=== PATIENT | female | born 1965 | race Hispanic/Latino ===

== ENCOUNTER 2018-10-22 01:07 | Emergency (ER) | payer BC ==
[2018-10-22 01:40] VITALS: BP 143/74
[2018-10-22] MEDS ORDERED: DECADRON IM ONE (02:14)
[2018-10-22] MEDS ORDERED: CLEOCIN PO ONE (02:19)
--- NOTE | 2018-10-22 02:46 | XRay Report ---
FINAL REPORT EXAM: XR CHEST ROUTINE 2V HISTORY: cough productive COMPARISON: None available. FINDINGS:: Frontal and lateral views of the chest obtained. Cardiac silhouette is within normal limi ts. Shallow inspiration. Mild peribronchial cuffing and minimal prominence of the interstitium concer josefina for bronchitis. No dense consolidation or effusion.. No pneumothorax. Visualized bony thorax is grossly intact. IMPRESSION:: Findings compatible with bronchitis. Mild pneumonitis not excluded. No dense consolidat ion or effusion.
[2018-10-22] MEDS ORDERED: PROVENTIL IH ONE (02:54)
--- NOTE | 2018-10-22 03:00 | Emergency Department Report ---
Upper Respiratory HPI - HPI Chief Complaint: Upper Respiratory Infection Stated Complaint: SORE THROAT/LIN Time Seen by Provider: 10/22/18 02:13 Duration: 4 Days URI Symptoms: Rhinorrhea: Yes, Sore Throat: Yes ( ), Ear Pain: Yes (right ), Cough: Yes, Shortness of Breath: Yes, Sick Contacts: Yes, Unable to Take Fluids: No, Urine Output Abnormal: No, Listless Behavior: No Other History: Patient presents for URI symptoms chest wall pain left ear pain noc fever wheezing and shortness of breath pt with nad as this time - Home Meds and Allergies Home Medications: Previous Rx's Medication Instructions Recorded Last Taken Type Ibuprofen 800 mg PO TID PRN #30 tablet 10/22/18 Unknown Rx Allergies/Adverse Reactions: Allergies Allergy/AdvReac Type Severity Reaction Status Date / Time cefaclor [From Ceclor] Allergy Unknown Verified 10/22/18 01:41 morphine Allergy Vomiting Verified 10/22/18 01:41 ED Review of Systems ROS: Stated complaint: SORE THROAT/LIN Other details as noted in HPI Constitutional: denies: chills, fever Eyes: denies: eye pain, eye discharge, vision change ENT: ear pain, throat pain, congestion. denies: dental pain, hearing loss, epistaxis Respiratory: cough, wheezing Cardiovascular: denies: chest pain, palpitations, dyspnea on exertion Endocrine: no symptoms reported Gastrointestinal: denies: abdominal pain, nausea, vomiting, diarrhea Genitourinary: denies: urgency, dysuria, frequency, hematuria, discharge, abnormal menses, dyspareunia Musculoskeletal: denies: back pain, joint swelling, arthralgia Skin: denies: rash, lesions Neurological: denies: headache, weakness, paresthesias, abnormal gait, vertigo Psychiatric: denies: anxiety, depression Hematological/Lymphatic: denies: easy bleeding, easy bruising ED Past Medical Hx - Past Medical History Hx Hypertension: Yes Additional medical history: high cholestrol. polycystic kidney disease - Surgical History Past Surgical History?: Yes Additional Surgical History: x1. endometrosis removed. - Social History Smoking Status: Never Smoker Substance Use Type: Alcohol - Medications Home Medications: Home Medications Medication Instructions Recorded Confirmed Last Taken Type Ibuprofen 800 mg PO TID PRN #30 tablet 10/22/18 Unknown Rx ED Bronchiolitis Physical Exam - Exam General: Vital signs noted. No distress. Alert and acting appropriately. HEENT: Yes Pharyngeal Erythema, Yes Dry Mucous Membranes, Yes Rhinorrhea, No Conjuctival Injection Ear: Left TM Erythema, Neither TM Bulge, Neither EAC Discharge Neck: No Adenopathy, No Rigidity Lungs: Yes Clear Lung Sounds, Yes Good Air Exchange, Yes Cough, No Wheezes, No Stridor, No Nasal Flaring, No Retractions, No Use of Accessory Muscles Heart: Yes Regular, No Murmur Abdomen: Yes Normal Bowel Sounds, No Tenderness, No Peritoneal Signs Skin: No Rash, No Eczema Neurologic: Alert and oriented, no deficits. Musculoskeletal: Unremarkable. ED Bronchiolitis Tests - Testing Testing: CXR: Normal/Negative (no infiltrates no opacities ) ED Physical Exam - General Limitations: No Limitations General appearance: alert, in no apparent distress - Head Head exam: Present: atraumatic, normocephalic, normal inspection - Eye Eye exam: Present: normal appearance, PERRL, EOMI Pupils: Present: normal accommodation - ENT ENT exam: Present: normal orophraynx, mucous membranes moist, TM's normal bilaterally, normal external ear exam - Neck Neck exam: Present: normal inspection, full ROM. Absent: tenderness, meningismus, lymphadenopathy, thyromegaly - Respiratory Respiratory exam: Present: normal lung sounds bilaterally. Absent: respiratory distress, wheezes, rhonchi, chest wall tenderness, accessory muscle use, decreased breath sounds, prolonged expiratory - Cardiovascular Cardiovascular Exam: Present: regular rate, normal rhythm, normal heart sounds. Absent: systolic murmur, diastolic murmur, rubs, gallop - GI/Abdominal GI/Abdominal exam: Present: soft, normal bowel sounds. Absent: distended, tenderness, rebound, mass, pulsatile mass, hernia - Rectal Rectal exam: Present: deferred - Extremities Exam Extremities exam: Present: normal inspection, full ROM, normal capillary refill. Absent: tenderness, pedal edema, joint swelling - Back Exam Back exam: Present: normal inspection, full ROM, muscle spasm. Absent: tenderness, CVA tenderness (R), CVA tenderness (L), paraspinal tenderness, vertebral tenderness, rash noted - Neurological Exam Neurological exam: Present: alert, oriented X3, CN II-XII intact, normal gait, motor sensory deficit - Psychiatric Psychiatric exam: Present: normal affect, normal mood - Skin Skin exam: Present: warm (O), dry, intact, normal color. Absent: rash ED Course Vital Signs 10/22/18 01:36 Temperature 98.2 F Pulse Rate 90 Respiratory 18 Rate Blood Pressure 143/74 O2 Sat by Pulse 97 Oximetry ED Medical Decision Making - Radiology Data Radiology results: report reviewed, image reviewed [address] [place] [address] XRay Report Signed Patient: UBALDO HULL MR#: [id number] : 1965 Acct:[id number] Age/Sex: 53 / F ADM Date: 10/22/18 Loc: ED Attending Dr: Ordering Physician: CARLYN CHARLTON NP Date of Service: 10/22/18 Procedure(s): XR chest routine 2V Accession Number(s): [id number] cc: CARLYN CHARLTON NP Fluoro Time In Minutes: FINAL REPORT EXAM: XR CHEST ROUTINE 2V HISTORY: cough productive COMPARISON: None available. FINDINGS:: Frontal and lateral views of the chest obtained. Cardiac silhouette is within normal limits. Shallow inspiration. Mild peribronchial cuffing and minimal prominence of the interstitium concerning for bronchitis. No dense consolidation or effusion.. No pneumothorax. Visualized bony thorax is grossly intact. IMPRESSION:: Findings compatible with bronchitis. Mild pneumonitis not excluded. No dense consolidation or effusion. Transcribed By: LMA Dictated By: GEORGE JEAN MD Electronically Authenticated By: GEORGE JEAN MD Signed Date/Time: 10/22/18 0246 - Medical Decision Making this is s URI cxr: normal cxr no infiltrate no opacities, symptoms improved plan: refill albuteral nebiziers, ibuprofin clindamycin , dc to home in stable to condition follow up with pcp in 2-3 days , pt verbalized agreement and understanding. of small. Critical care attestation.: If time is entered above; I have spent that time in minutes in the direct care of this critically ill patient, excluding procedure time. ED Disposition Clinical Impression: Bronchitis Disposition: DC-01 TO HOME OR SELFCARE Is pt being admited?: No Does the pt Need Aspirin: No Condition: Good Instructions: Chronic Bronchitis (ED), Acute Bronchitis (ED), Otitis Media (ED) Prescriptions: Ibuprofen 800 mg PO TID PRN #30 tablet PRN Reason: chest wall pain Referrals: PRIMARY CARE,MD [Primary Care Provider] - 3-5 Days Forms: Work/School Release Form(ED) Time of Disposition: 03:16
--- NOTE | 2018-10-22 03:22 | Emergency Department Report ---
ED General Adult HPI - General Chief complaint: Upper Respiratory Infection Stated complaint: SORE THROAT/LIN Time Seen by Provider: 10/22/18 02:13 Source: patient Mode of arrival: Ambulatory Limitations: No Limitations - History of Present Illness Initial comments: There is a 53-year-old white female who presents for URI symptoms including earache and body aches partner has no particular symptoms are resolved , pt cought in cough chest wall pain tmox 100. thee sinus papin have been rescon smitha JORGENSEN Complaint: Tolu Valderrama Felicitas Onset/Timin () -: Gradual - Related Data Previous Rx's Medication Instructions Recorded Last Taken Type ALBUTEROL Inhaler(NF) [VENTOLIN 1 puff IH Q4H #25 inha 10/22/18 Unknown Rx Inhaler(NF)] ALBUTEROL NEB's [Proventil 0.083% 2.5 mg IH ONCE #20 nebu 10/22/18 Unknown Rx NEBS] Ibuprofen 800 mg PO TID PRN #30 tablet 10/22/18 Unknown Rx Ibuprofen [Motrin 800 MG tab] 800 mg PO Q8HR PRN #30 tablet 10/22/18 Unknown Rx predniSONE [Deltasone] 20 mg PO QDAY 5 Days #10 tab 10/22/18 Unknown Rx Allergies Allergy/AdvReac Type Severity Reaction Status Date / Time cefaclor [From Ceclor] Allergy Unknown Verified 10/22/18 01:41 morphine Allergy Vomiting Verified 10/22/18 01:41 ED Review of Systems ROS: Stated complaint: SORE THROAT/LIN Other details as noted in HPI Constitutional: denies: chills, fever Eyes: denies: eye pain, eye discharge, vision change ENT: ear pain, throat pain, congestion. denies: dental pain, hearing loss, epistaxis Respiratory: cough, wheezing Cardiovascular: denies: chest pain, palpitations, dyspnea on exertion Endocrine: no symptoms reported Gastrointestinal: denies: abdominal pain, nausea, vomiting, diarrhea Genitourinary: denies: urgency, dysuria, frequency, hematuria, discharge, abnormal menses, dyspareunia Musculoskeletal: denies: back pain, joint swelling, arthralgia Skin: denies: rash, lesions Neurological: denies: headache, weakness, paresthesias, abnormal gait, vertigo Psychiatric: denies: anxiety, depression Hematological/Lymphatic: denies: easy bleeding, easy bruising ED Past Medical Hx - Past Medical History Hx Hypertension: Yes Additional medical history: high cholestrol. polycystic kidney disease - Surgical History Past Surgical History?: Yes Additional Surgical History: x1. endometrosis removed. - Social History Smoking Status: Never Smoker Substance Use Type: Alcohol - Medications Home Medications: Home Medications Medication Instructions Recorded Confirmed Last Taken Type ALBUTEROL Inhaler(NF) [VENTOLIN 1 puff IH Q4H #25 inha 10/22/18 Unknown Rx Inhaler(NF)] ALBUTEROL NEB's [Proventil 0.083% 2.5 mg IH ONCE #20 nebu 10/22/18 Unknown Rx NEBS] Ibuprofen 800 mg PO TID PRN #30 tablet 10/22/18 Unknown Rx Ibuprofen [Motrin 800 MG tab] 800 mg PO Q8HR PRN #30 tablet 10/22/18 Unknown Rx predniSONE [Deltasone] 20 mg PO QDAY 5 Days #10 tab 10/22/18 Unknown Rx ED Physical Exam - General Limitations: No Limitations General appearance: alert, in no apparent distress - Head Head exam: Present: atraumatic, normocephalic, normal inspection - Eye Eye exam: Present: normal appearance, PERRL, EOMI Pupils: Present: normal accommodation - ENT ENT exam: Present: normal exam, mucous membranes moist - Neck Neck exam: Present: normal inspection, tenderness, full ROM, lymphadenopathy, thyromegaly, other. Absent: meningismus - Respiratory Respiratory exam: Present: normal lung sounds bilaterally. Absent: respiratory distress ED Course Vital Signs 10/22/18 01:36 Temperature 98.2 F Pulse Rate 90 Respiratory 18 Rate Blood Pressure 143/74 O2 Sat by Pulse 97 Oximetry ED Medical Decision Making - EKG Data EKG shows normal: sinus rhythm Rate: normal - EKG Data When compared to previous EKG there are: no significant change Interpretation: no acute changes, normal EKG, unchanged when compared t - Radiology Data Radiology results: pending, image reviewed FINAL REPORT EXAM: XR CHEST ROUTINE 2V HISTORY: cough productive COMPARISON: None available. FINDINGS:: Frontal and lateral views of the chest obtained. Cardiac silhouette is within normal limits. Shallow inspiration. Mild peribronchial cuffing and minimal prominence of the interstitium concerning for bronchitis. No dense consolidation or effusion.. No pneumothorax. Visualized bony thorax is grossly intact. IMPRESSION:: Findings compatible with bronchitis. Mild pneumonitis not excluded. No dense consolidation or effusion. Transcribed By: LMA Dictated By: GEORGE JEAN MD Electronically Authenticated By: GEORGE JEAN MD Signed Date/Time: 10/22/18 0246 - Medical Decision Making ymptoms improved pt is tolerating po intake without n/v plan: follow with pcp in 2-3 days for recheck , take all medications , pt verbalizes agreement and understanding of same for discharge to home in stable condtion as they pack Critical care attestation.: If time is entered above; I have spent that time in minutes in the direct care of this critically ill patient, excluding procedure time. ED Disposition Clinical Impression: Bronchitis Disposition: - TO HOME OR SELFCARE Is pt being admited?: No Does the pt Need Aspirin: No Condition: Good Instructions: Otitis Media (ED), Acute Bronchitis (ED), Chronic Bronchitis (ED) Prescriptions: ALBUTEROL Inhaler(NF) [VENTOLIN Inhaler(NF)] 1 puff IH Q4H #25 inha ALBUTEROL NEB's [Proventil 0.083% NEBS] 2.5 mg IH ONCE #20 nebu Ibuprofen [Motrin 800 MG tab] 800 mg PO Q8HR PRN #30 tablet PRN Reason: Fever >101 Ibuprofen 800 mg PO TID PRN #30 tablet PRN Reason: chest wall pain predniSONE [Deltasone] 20 mg PO QDAY 5 Days #10 tab Referrals: PRIMARY CARE, [Primary Care Provider] - 3-5 Days Forms: Work/School Release Form(ED) Time of Disposition: 03:38
== END 2018-10-22 03:46 | disposition home or self-care (01) ==
LOC: ED 01:07
DX: J40 Bronchitis, not specified as acute or chronic (principal); I10 Essential (primary) hypertension; E78.00 Pure hypercholesterolemia, unspecified; Z88.5 Allergy status to narcotic agent
CPT/HCPCS: 71046; 96372; 99283; J1100